=== PATIENT | male | born 1950 | race Caucasian/White ===

== ENCOUNTER 2021-11-05 08:14 | Outpatient (CLI) | payer OTHER ==
--- NOTE | 2021-11-05 10:17 | Cat Scan Report ---
CT ABDOMEN AND PELVIS WITHOUT CONTRAST HISTORY: C61 MALIGNANT NEOPLASM OF PROSTATE. COMPARISON: None. TECHNIQUE: CT images of the abdomen and pelvis were obtained without administration of intravenous co ntrast. All CT scans at this location are performed using CT dose reduction for ALARA by means of au tomated exposure control. FINDINGS: Lungs/bones: Mild atelectasis in left lower lung Abdomen/pelvis: Within limits of a noncontrast examination the liver, spleen, adrenal glands, pancre as, gallbladder and upper GI tract appear normal. Appendix appears normal. No bowel obstruction is se en. Small amount of fluid is seen surrounding the right testicle. Urinary bladder appears normal. Kid neys appear normal without definite renal or ureteral stones. No dominant adenopathy is seen. There is degenerative change throughout spine with disc osteophytes throughout. Facet arthropathy is seen throughout. No IMPRESSION: 1. Small sclerotic lesion within the left iliac bone measuring 8 mm. Otherwise no definite evidence f or metastatic disease. Degenerative changes seen throughout spine. No other acute findings. Signer Name: Ranjit Sánchez MD Signed: 11/05/2021 10:13 AM Workstation Name: [id number]
--- NOTE | 2021-11-05 13:33 | Nuclear Medicine Report ---
NUCLEAR MEDICINE WHOLE BODY BONE IMAGING STUDY. HISTORY: C61 MALIGNANT NEOPLASM OF PROSTATE COMPARISON: No prior bone scans are available for comparison. CT abdomen/pelvis earlier today. TECHNIQUE: The patient was administered 27.3 mCi of technetium 99m labeled MDP intravenously. FINDINGS: There is bilateral, relatively symmetric articular activity which is most likely degenerative given t he distribution and symmetry. There is focal abnormal tracer activity along the posterior aspect of the right 11th rib. No other ab normal foci of radiotracer activity seen. There is normal soft tissue activity in the kidneys and urinary bladder. IMPRESSION: No scintigraphic evidence of osseous metastatic disease. Focal uptake along the posterior right 11th rib corresponds to a subacute/chronic incompletely healed fracture. There is no abnormal tracer activ ity at the punctate sclerotic lesion in the medial left iliac bone. Signer Name: Stephen Mccormack MD Signed: 11/05/2021 1:29 PM Workstation Name: [id number]
== END 2021-11-05 08:15 | disposition home or self-care (01) ==
LOC: NM 08:14
PROVIDERS: ATTEND Urology
DX: C61 Malignant neoplasm of prostate (principal); J98.11 Atelectasis; M25.78 Osteophyte, vertebrae; M47.819 Spondylosis without myelopathy or radiculopathy, site unspecified
CPT/HCPCS: 74176; 78306; A9503